=== PATIENT | male | born 1945 | race African-American/Black ===

== ENCOUNTER → 2024-04-10 10:16 | Outpatient (REF) | payer MEDICARE, BC, SELFPAY | LOC: HWRAD 10:16 | PROVIDERS: ATTENDING PHYSICIAN Internal Medicine | DX: M25.551 Pain in right hip (principal) | CPT/HCPCS: 73502 ==

== ENCOUNTER → 2024-07-04 08:18 | Outpatient (REF) | payer MEDICARE, BC, SELFPAY | LOC: RST 08:18 | PROVIDERS: ATTENDING PHYSICIAN Family Medicine | DX: R13.10 Dysphagia, unspecified (principal) | CPT/HCPCS: 74230; 92611 ==

== ENCOUNTER → 2025-01-23 11:10 | Outpatient (REF) | payer MEDICARE, BC, SELFPAY | LOC: HWRAD 11:10 | PROVIDERS: ATTENDING PHYSICIAN Family Medicine | DX: J18.9 Pneumonia, unspecified organism (principal) | CPT/HCPCS: 71046 ==